=== PATIENT | female | born 2000 | race Caucasian/White ===

== ENCOUNTER 2024-11-02 20:08 | Outpatient (CLI) | payer OTHER, SELFPAY ==
[2024-11-02] VITALS (11 sets, daily range): BP systolic 119–136; BP diastolic 76–98; PULSE 72–95; RESP 20; TEMP 36.9; O2SAT 98; BMI 23.4
[2024-11-02] MEDS: Acetaminophen 500 MG Tablet 1000 MG PO (21:04)
[2024-11-02] MEDS: cycloBENZAPRine HCl 5 MG TABLET PO (21:05)
--- NOTE | 2024-11-02 21:15 | NURSING ---
RN attempted IV insertion x2 in pt left hand and left forearm with 20g needle with no successful placement achieved. Decision made by this RN to obtain ordered labs via butterfly needle stick.
[2024-11-02] MEDS: Labetalol 100 MG Tablet PO (21:37)
[2024-11-02 21:40] LABS: Hematocrit 27.2 % (37-47); Hemoglobin 9.6 g/dL (12.0-15.0); Mean Corp Hgb Conc 35.3 g/dL (32-36); Mean Corpuscular Hgb 32.5 pg (27.0-32.0); Mean Corpuscular Volume 92.2 fL (81-99); Mean Platelet Vol. 9.2 fl (6.2-12.0); Platelet Count 203 K/mm3 (150-450); RBC Distribution Width CV 12.4 % (11.6-14.6); RBC Distribution Width SD 41.2 fl (35.1-43.9); Red Blood Count 2.95 M/mm3 (4.2-5.4); White Blood Count 5.4 K/mm3 (4.4-11.0)
[2024-11-02 22:21] LABS: ALB/GLOB Ratio 1.3 RATIO (0.9-2.4); AST(SGOT) 49 U/L (<=31); Alanine Aminotransfer ALT/SGPT 69 U/L (<=34); Albumin, Serum 3.2 g/dL (3.5-5.0); Alkaline Phosphatase 91 U/L (35-104); Anion Gap 11 (5-15); BUN 8 mg/dL (4-19); BUN/Creat Ratio 15.2 RATIO (10-20); Carbon Dioxide 24.2 mmol/L (21.0-32.0); Chloride 103 mmol/L (98-108); Creatinine, Serum 0.53 mg/dL (0.70-1.20); EST Glomerular Filtration Rate 133 (>60); Estimated Creatinine Clearance 166.53 ml/min (50-250); Globulin 2.5 g/dL (2.2-4.2); Glucose 86 mg/dL (70-99); Potassium 3.4 mmol/L (3.3-5.1); Protein, Total 5.7 g/dL (5.9-8.4); Sodium Level 138 mmol/L (133-145); Total Bilirubin 0.47 mg/dL (0.00-1.30)
[2024-11-02 22:37] LABS: AST(SGOT) 50 U/L (<=31); Alanine Aminotransfer ALT/SGPT 68 U/L (<=34); Creatinine, Serum 0.56 mg/dL (0.70-1.20); EST Glomerular Filtration Rate 131 (>60); Estimated Creatinine Clearance 157.61 ml/min (50-250); Uric Acid 4.5 mg/dL (2.6-6.0)
--- NOTE | 2024-11-02 22:59 | NURSING ---
Addendum entered by Ana Paula Means 11/02/24 23:03: Discussion with Marianne Ward CNM per telephone at [phone]. Original Note: Provider states that as long as pt headache pain is decreasing, her score is decreasing as well and that pt is not severe at this time due to decreasing pain and the fact that pt is able to rest and interventions helped with pain. RN verbalized understanding. Per Marianne Ward CNM, provider to verify pt can be discharged to home with Dr. Kumar and will let this RN know for sure if discharge is appropriate for this pt.
--- NOTE | 2024-11-05 09:01 | OB.TRI.NOTE ---
HPI - General General Date of Service: 11/02/24 HPI Narrative ABHIJIT JACKSON, is a 24 F who presents for headache 3 days . Delivered at the [facility] and developed a headache today that was not going away after Tylenol. No history of preeclampsia, GHTN, or CHTN. Labor and delivery uncomplicated per plastic cutter that spoke with earlier today in office. No visual changes or other complaints. Lochia normal. . PFSH PFSH Medical History no medical history Home Medications ?Medication ?Instructions ?Recorded ?Last Taken ?Type Lactobacillus acidophilus PO DAILY patient preferece 11/02/24 11/01/24 20:00 History Vitamin C patient preference 11/02/24 11/02/24 History ibuprofen PO PRN PRN pain 11/02/24 11/02/24 13:30 History naproxen sodium PO PRN PRN pain 11/02/24 11/02/24 17:00 History vit no.95-ferrous 1 tab PO DAILY 11/02/24 11/01/24 20:00 History fumarate 28 mg-folic acid 800 mcg tablet () Allergy/AdvReac Type Severity Reaction Status Date / Time No Known Allergies Allergy Verified 11/02/24 20:45 Surgical History no surgical history Assessment & Plan (1) headache: PLAN: Plan 1. Flexeril given for headache PO, initial headache 5/10, repeat scoring after flexeril 3/10 with improvement. No visual changes 2. Platelets normal. LFT mildly elevated 3. BP mild range, 131/76. Dose of labetalol 100mg PO once. Will send prescription outpatient for labetalol 100mg PO BID. 4. Follow up with [facility] or for management, will notify [facility] office tomorrow for follow up plan. 5. No signs of PP preeclampsia but close follow up for mildly elevated BP and LFTs. notified and agrees with plan of care.
== END 2024-11-02 23:55 | disposition home or self-care (01) ==
LOC: WP 23:32 → WPOUT 11-03 10:47 → WP 11-03 10:57
PROVIDERS: Advanced Practice Midwife; PCP Nurse Practitioner Family; Visit Provider Obstetrics & Gynecology
DX: O99.893 Other specified diseases and conditions complicating puerperium (principal); R51.9 Headache, unspecified
CPT/HCPCS: 36415; 80053; 82565; 84450; 84460; 84550; 85027; 99221; G0378